=== PATIENT | male | born 1940 | race African-American/Black ===

== ENCOUNTER 2018-09-25 13:39 | Inpatient (IN) | payer OTHER ==
[~2018-09-25] VITALS: Ht 170.2 cm; Wt 54.0 kg
[2018-09-25 13:45] VITALS: BP_SYST 112
[2018-09-25] MEDS ORDERED: NS 1000 ML IV.SOLN IV ONE (14:00)
[2018-09-25] MEDS ORDERED: PRO40 PO (14:01)
[2018-09-25] MEDS ORDERED: TYLL650 PO (14:01)
[2018-09-25] MEDS ORDERED: LACT10SO6 PO (14:01)
[2018-09-25] MEDS ORDERED: CAT.1 PO (14:01)
[2018-09-25] MEDS ORDERED: IPRA4AER INH (14:01)
[2018-09-25] MEDS ORDERED: ASCO500S9 PO (14:01)
[2018-09-25] MEDS ORDERED: IBUP-2018 PO (14:01)
[2018-09-25] MEDS ORDERED: ZIN220 PO (14:01)
[2018-09-25] MEDS ORDERED: LOSA100T3 PO (14:01)
[2018-09-25] MEDS ORDERED: LACT-47 PO (14:01)
[2018-09-25 14:27] LABS: BASOPHILS # (AUTO) 0.1 K/uL (0.0-0.2); BASOPHILS % (AUTO) 0.5 % (0.0-2.0); EOSINOPHILS # (AUTO) 0.1 K/uL (0.0-0.4); EOSINOPHILS % (AUTO) 0.4 % (0.0-4.0); HEMATOCRIT 34.8 % (36-54); HEMOGLOBIN 10.8 g/dL (14.0-18.0); LYMPHOCYTES # (AUTO) 4.4 K/uL (1.0-5.5); LYMPHOCYTES % (AUTO) 25.7 % (20.5-51.5); MEAN CORPUSCULAR HEMOGLOBIN 28 pg (27-31); MEAN CORPUSCULAR HGB CONC 31 % (32-36); MEAN CORPUSCULAR VOLUME 90 fL (79.0-98.0); MONOCYTES # (AUTO) 1.2 K/uL (0.0-1.0); MONOCYTES % (AUTO) 7.3 % (1.7-9.3); NEUTROPHILS # (AUTO) 11.2 K/uL (1.8-7.7); NEUTROPHILS % (AUTO) 66.1 % (40.0-70.0); PLATELET COUNT (AUTO) 221 K/uL (130-430); RED BLOOD CELL COUNT(AUTO) 3.86 MIL/uL (4.2-6.2); RED CELL DISTRIBUTION WIDTH 13.1 % (9.0-15.0)
[2018-09-25 14:34] LABS: ANION GAP 7 (5-15); CALCIUM 8.1 mg/dL (8.4-11.0); CHLORIDE 116 mmol/L (98-107); CREATININE 2.76 mg/dL (0.55-1.30); GLUCOSE 99 mg/dL (70-99); POTASSIUM 4.1 mmol/L (3.5-5.1); SODIUM SERUM 150 mmol/L (136-145); UREA NITROGEN, BLOOD 44 mg/dL (8-21)
[2018-09-25 14:39] LABS: ALANINE AMINOTRANSFERASE 37 U/L (12-78); ALBUMIN 1.9 g/dL (3.4-4.8); ASPARTATE AMINOTRANSFERASE 81 U/L (10-37); TOTAL BILIRUBIN 0.6 mg/dL (0.0-1.0)
[2018-09-25] MEDS ORDERED: cefTRIAXone 1 GM IVPB PREMIX 50 ML IV ONE (15:15)
[2018-09-25 15:20] LABS: BILIRUBIN,URINE NEGATIVE (NEGATIVE); BLOOD, URINE 3+ (NEGATIVE); CLARITY/URINE CLEAR (CLEAR); COLOR,URINE YELLOW (YELLOW); GLUCOSE,URINE NEGATIVE (NEGATIVE); KETONES,URINE NEGATIVE (NEGATIVE); LEUKOCYTE ESTERASE ,URINE 1+ (NEGATIVE); NITRITE, URINE NEGATIVE (NEGATIVE); PROTEIN URINE 1+ (NEGATIVE); UROBILINOGEN,URINE 0.2 (0.2-1.0)
[2018-09-25 15:33] LABS: BACTERIA,URINE MANY /HPF (None Seen); WBC,URINE 80-100 /HPF (0-3)
[2018-09-25] MEDS ORDERED: MAGNESIUM SULFATE 50 ML IV PRN (16:15)
[2018-09-25] MEDS ORDERED: MUPIROCIN 2% TOPICAL OINTMENT 22 GM NS PRN (16:15)
[2018-09-25] MEDS ORDERED: DOCUSATE SODIUM 100 MG CAPSULE PO PRN (16:15)
[2018-09-25] MEDS ORDERED: ONDANSETRON HCL 4 MG/2 ML VIAL IVP PRN (16:15)
[2018-09-25] MEDS ORDERED: POTASSIUM CHLORIDE 20 MEQ TAB.PRT.SR PO PRN (16:15)
[2018-09-25] MEDS ORDERED: MORPHINE 4 MG/ML INJ. SYRINGE IVP PRN (16:15)
[2018-09-25] MEDS ORDERED: ACETAMINOPHEN 650 MG/20.3 ML UDC PO PRN (16:15)
[2018-09-25] MEDS ORDERED: HYDROcodone/ACETAMIN 5-325 MG TAB (NORCO/ VICODIN) PO PRN (16:15)
[2018-09-25 16:49] LABS: INR 1.3 (0.80-1.20); PROTHROMBIN TIME 13.3 SECS (9.5-12.5)
[2018-09-25] MEDS ORDERED: cefTRIAXone 1 GM IVPB PREMIX 50 ML IV SCH (17:00)
[2018-09-25 17:04] VITALS: BP_SYST 124
[2018-09-25] MEDS ORDERED: IPRATROPIUM/ALBUTEROL SULFATE 120 PUFFS/4 GM INH INH SCH (18:00)
[2018-09-25] MEDS: NACL 0.9% 1,000 ML IV SCH (18:47)
[2018-09-25] MEDS ORDERED: IPRATROPIUM/ALBUTEROL SULFATE 3 ML AMPUL.NEB (DUONEB) INH SCH (19:00)
[2018-09-25 21:00] VITALS: BP_SYST 120
[2018-09-25] MEDS: LACTULOSE 20 GM/30 ML UDC PO SCH (21:00)
[2018-09-25] MEDS: PANTOPRAZOLE SODIUM 40 MG TAB PO SCH (21:00)
[2018-09-26 00:20] VITALS: BP_SYST 123
[2018-09-26] MEDS: NACL 0.9% 1,000 ML IV SCH ×2 (04:07→08:24)
[2018-09-26] MEDS: cloNIDine HCL 0.1 MG TABLET PO SCH ×4 (06:00→17:32)
[2018-09-26] MEDS: PANTOPRAZOLE SODIUM 40 MG TAB PO SCH ×2 (07:00→20:32)
[2018-09-26 07:29] LABS: ANION GAP 13 (5-15); CALCIUM 7.5 mg/dL (8.4-11.0); CREATININE 2.01 mg/dL (0.55-1.30); GLUCOSE 89 mg/dL (70-99); POTASSIUM 3.8 mmol/L (3.5-5.1); SODIUM SERUM 158 mmol/L (136-145); UREA NITROGEN, BLOOD 41 mg/dL (8-21)
[2018-09-26 07:36] LABS: BASOPHILS # (AUTO) 0.1 K/uL (0.0-0.2); BASOPHILS % (AUTO) 0.7 % (0.0-2.0); EOSINOPHILS # (AUTO) 0.2 K/uL (0.0-0.4); HEMATOCRIT 29.2 % (36-54); LYMPHOCYTES # (AUTO) 2.7 K/uL (1.0-5.5); LYMPHOCYTES % (AUTO) 17.3 % (20.5-51.5); MEAN CORPUSCULAR HEMOGLOBIN 28 pg (27-31); MEAN CORPUSCULAR HGB CONC 31 % (32-36); MEAN CORPUSCULAR VOLUME 92 fL (79.0-98.0); MONOCYTES # (AUTO) 1.1 K/uL (0.0-1.0); MONOCYTES % (AUTO) 7.2 % (1.7-9.3); NEUTROPHILS # (AUTO) 11.3 K/uL (1.8-7.7); NEUTROPHILS % (AUTO) 73.8 % (40.0-70.0); PLATELET COUNT (AUTO) 157 K/uL (130-430); RED BLOOD CELL COUNT(AUTO) 3.19 MIL/uL (4.2-6.2); RED CELL DISTRIBUTION WIDTH 13.5 % (9.0-15.0); WHITE BLOOD COUNT (AUTO) 15.4 K/uL (4.8-10.8)
[2018-09-26 07:43] LABS: CHLORIDE 122 mmol/L (98-107)
[2018-09-26] MEDS: cefTRIAXone 1 GM IVPB PREMIX 50 ML IV SCH (08:17)
[2018-09-26] MEDS: LOSARTAN POTASSIUM 50 MG TABLET (COZAAR) PO SCH (08:17)
[2018-09-26] MEDS: LACTULOSE 20 GM/30 ML UDC PO SCH ×2 (08:18→20:32)
[2018-09-26 10:24] VITALS: BP_SYST 128
[2018-09-26 12:38] VITALS: BP_SYST 126
[2018-09-26] MEDS: 0.45% NACL 1,000 ML IV SCH (14:48)
[2018-09-26 16:57] VITALS: BP_SYST 121
[2018-09-26 20:00] VITALS: BP_SYST 115
[2018-09-27 01:18] VITALS: BP_SYST 129
[2018-09-27] MEDS: cloNIDine HCL 0.1 MG TABLET PO SCH ×2 (05:54)
[2018-09-27 06:50] LABS: BASOPHILS # (AUTO) 0.1 K/uL (0.0-0.2); BASOPHILS % (AUTO) 0.5 % (0.0-2.0); EOSINOPHILS # (AUTO) 0.2 K/uL (0.0-0.4); EOSINOPHILS % (AUTO) 1.4 % (0.0-4.0); HEMATOCRIT 30.9 % (36-54); LYMPHOCYTES # (AUTO) 2.5 K/uL (1.0-5.5); LYMPHOCYTES % (AUTO) 17.1 % (20.5-51.5); MEAN CORPUSCULAR HEMOGLOBIN 30 pg (27-31); MEAN CORPUSCULAR HGB CONC 32 % (32-36); MEAN CORPUSCULAR VOLUME 92 fL (79.0-98.0); PLATELET COUNT (AUTO) 182 K/uL (130-430); RED BLOOD CELL COUNT(AUTO) 3.38 MIL/uL (4.2-6.2); RED CELL DISTRIBUTION WIDTH 13.6 % (9.0-15.0); WHITE BLOOD COUNT (AUTO) 14.8 K/uL (4.8-10.8)
[2018-09-27] MEDS: PANTOPRAZOLE SODIUM 40 MG TAB PO SCH (07:00)
[2018-09-27 07:11] LABS: ANION GAP 11 (5-15); CALCIUM 7.9 mg/dL (8.4-11.0); CREATININE 1.81 mg/dL (0.55-1.30); GLUCOSE 67 mg/dL (70-99); PHOSPHORUS 3.9 mg/dL (2.7-4.5); POTASSIUM 3.9 mmol/L (3.5-5.1); SODIUM SERUM 155 mmol/L (136-145); UREA NITROGEN, BLOOD 44 mg/dL (8-21)
[2018-09-27 07:26] LABS: CHLORIDE 123 mmol/L (98-107)
[2018-09-27 08:00] VITALS: BP_SYST 119
[2018-09-27] MEDS: LACTULOSE 20 GM/30 ML UDC PO SCH (09:00)
[2018-09-27] MEDS: LOSARTAN POTASSIUM 50 MG TABLET (COZAAR) PO SCH (09:00)
[2018-09-27] MEDS: cefTRIAXone 1 GM IVPB PREMIX 50 ML IV SCH (09:17)
[2018-09-27] MEDS: 0.45% NACL 1,000 ML IV SCH (09:17)
[2018-09-27] MEDS ORDERED: LORazepam 2 MG/ML VIAL IVP PRN (10:15)
[2018-09-27] MEDS ORDERED: MORPHINE 4 MG/ML INJ. SYRINGE IVP PRN (10:15)
[2018-09-27 12:18] VITALS: BP_SYST 104
[2018-09-27] MEDS ORDERED: BALSAM PERU/CASTOR OIL 60 GM OINT...G. TP ONE (14:45)
[2018-09-27 16:22] VITALS: BP_SYST 110
[2018-09-27 20:50] VITALS: BP_SYST 112
[2018-09-28 01:11] VITALS: BP_SYST 110
[2018-09-28 05:55] VITALS: BP_SYST 110
[2018-09-28 08:00] VITALS: BP_SYST 113
[2018-09-28] MEDS ORDERED: BALSAM PERU/CASTOR OIL 60 GM OINT...G. TP SCH (09:00)
[2018-09-28 11:25] VITALS: BP_SYST 132
[2018-09-28 12:23] VITALS: BP_SYST 136
== END 2018-09-28 14:55 | DRG 871 ==
LOC: SED 13:39 → STU 16:14 → SMU 09-26 10:37
PROVIDERS: ADMIT Family Medicine; ATTEND Family Medicine
DX: A41.9 Sepsis, unspecified organism (principal); N17.0 Acute kidney failure with tubular necrosis; G93.41 Metabolic encephalopathy; N39.0 Urinary tract infection, site not specified; E87.0 Hyperosmolality and hypernatremia; D68.4 Acquired coagulation factor deficiency; Z68.1 Body mass index [BMI] 19.9 or less, adult; K70.30 Alcoholic cirrhosis of liver without ascites; K21.9 Gastro-esophageal reflux disease without esophagitis; I10 Essential (primary) hypertension; D63.8 Anemia in other chronic diseases classified elsewhere; N18.3 Chronic kidney disease, stage 3 (moderate); R62.7 Adult failure to thrive; E87.8 Other disorders of electrolyte and fluid balance, not elsewhere classified; Z79.899 Other long term (current) drug therapy; Z59.0 Homelessness; Z88.1 Allergy status to other antibiotic agents
CPT/HCPCS: 36415; 70450-TC; 71045; 80048; 80053; 81000-TC; 82140-TC; 83036; 83605; 83735-TC; 83880; 84100-TC; 84484; 85025; 85610-TC; 87040-TC; 87081; 87086; 87186-TC; 92610-GN; 93005; 96365; 99285; G0378; J0696; J3475; J7030; J7050